=== PATIENT | male | born 1965 | race Caucasian/White ===

== ENCOUNTER 2018-02-10 11:10 | Emergency (ER) | payer OTHER ==
[~2018-02-10] VITALS: Ht 177.8 cm; Wt 92.5 kg
[2018-02-10 11:13] VITALS: Ht 177.8 cm; Wt 92.5 kg
[2018-02-10 12:10] LABS: CALCIUM 8.7 mg/dL (8.5-10.1); CARBON DIOXIDE 27.3 mmol/L (21-32); CHLORIDE SERUM 106 mmol/L (98-107); GFR1 > 60 mL/min; GLUCOSE SERUM 85 mg/dL (74-106); POTASSIUM SERUM 4.1 mmol/L (3.5-5.1); SODIUM SERUM 141 mmol/L (136-145)
[2018-02-10 12:16] LABS: ALKALINE PHOSPHATASE 93 U/L (46-116); ALT/SGPT 22 U/L (16-63); AST/SGOT 9 U/L (15-37); BASOPHIL % 0.3 % (0-2); BILIRUBIN TOTAL 0.3 mg/dL (0.20-1.00); PLATELET COUNT 294 x10^3mcL (130-400); TOTAL PROTEIN, SERUM 6.5 g/dL (6.4-8.2)
[2018-02-10 12:20] LABS: ALBUMIN 3.3 g/dL (3.4-5.0)
[2018-02-10 12:22] LABS: RED CELL DISTRIBUTION WIDTH 15.3 % (11.5-14.5)
[2018-02-10 13:44] VITALS: BP 118/67
== END 2018-02-10 13:44 | disposition home or self-care (01) ==
LOC: ED 11:10
PROVIDERS: Emergency Medicine
DX: J40 Bronchitis, not specified as acute or chronic (principal); F17.210 Nicotine dependence, cigarettes, uncomplicated
CPT/HCPCS: 36415; 83880; 99406; Q0092